=== PATIENT | female | born 1965 | race Caucasian/White ===

== ENCOUNTER 2023-04-23 10:40 | Emergency (ER) | payer OTHER ==
[~2023-04-23] VITALS: Ht 160 cm; Wt 65.8 kg
[2023-04-23 10:44] VITALS: BP 129/83; PULSE 88; RESP 18; TEMP 97.9; O2SAT 97
[2023-04-23 11:29] LABS: BASOPHILS % (AUTO) 0.3 % (0.0-2.0); EOSINOPHILS # (AUTO) 0.1 K/uL (0-0.4); EOSINOPHILS % (AUTO) 0.6 % (0.0-4.0); HEMATOCRIT 37.6 % (36-48); HEMOGLOBIN 12.7 g/dL (12.0-16.0); LYMPHOCYTES # (AUTO) 2.7 K/uL (2.5-16.5); MEAN CORPUSCULAR HEMOGLOBIN 30 pg (27-31); MEAN CORPUSCULAR HGB CONC 34 g/dL (33-37); MEAN CORPUSCULAR VOLUME 87.7 fL (80-94); MONOCYTES # (AUTO) 0.5 K/uL (0.8-1.0); MONOCYTES % (AUTO) 6.2 % (1.7-9.3); NEUTROPHILS # (AUTO) 4.6 K/uL (1.8-7.7); NEUTROPHILS % (AUTO) 58.9 % (42.2-75.2); PLATELET COUNT (AUTO) 219 K/uL (140-450); RED BLOOD CELL COUNT(AUTO) 4.29 MIL/uL (4.20-5.40); RED CELL DISTRIBUTION WIDTH 12.8 % (11.6-13.7); WHITE BLOOD COUNT (AUTO) 7.8 K/uL (4.8-10.8)
[2023-04-23 11:48] VITALS: O2SAT 97
[2023-04-23 12:18] LABS: ALANINE AMINOTRANSFERASE 39 U/L (12-78); ALBUMIN 3.7 g/dL (3.4-5.0); ALCOHOL, BLOOD < 3 mg/dL (<10); ALKALINE PHOSPHATASE 100 U/L (50-136); ANION GAP 13.8 (8-16); ASPARTATE AMINOTRANSFERASE 25 U/L (15-37); CALCIUM 8.5 mg/dL (8.5-10.1); CARBON DIOXIDE 25.8 mmol/L (21-32); CHLORIDE 108 mmol/L (98-107); CREATININE 0.8 mg/dL (0.6-1.3); FREE T4 (FREE THYROXINE) 0.92 ng/dL (0.76-1.46); GFR ARICAN-AMERICAN 96 mL/min (>90); GFR NON ARICAN-AMERICAN 79 mL/min (>90); GLUCOSE 145 mg/dL (74-106); POTASSIUM 3.6 mmol/L (3.5-5.1); SODIUM SERUM 144 mmol/L (136-145); THYROID STIMULATING HORMONE 1.27 uIU/mL (0.34-3.74); TOTAL BILIRUBIN 0.4 mg/dL (0.0-1.0); TOTAL PROTEIN, SERUM 6.6 g/dL (6.4-8.2); UREA NITROGEN, BLOOD 8 mg/dL (7-18)
[2023-04-23 12:47] LABS: ACETAMINOPHEN < 0.5 ug/ml (10-30); SALICYLATE < 2.8 mg/dL (2.8-20.0)
[2023-04-23] MEDS ORDERED: ACETAMINOPHEN 325 MG TAB PO ONE (13:50)
[2023-04-23] MEDS ORDERED: ACET-10509 PO (14:00)
[2023-04-23 15:24] VITALS: BP 129/83; PULSE 88; RESP 18; TEMP 97.9; O2SAT 97
== END 2023-04-23 15:29 | disposition home or self-care (01) ==
LOC: MED 10:40
DX: R51.9 Headache, unspecified (principal); J02.9 Acute pharyngitis, unspecified; I10 Essential (primary) hypertension; E11.9 Type 2 diabetes mellitus without complications; Z79.899 Other long term (current) drug therapy
CPT/HCPCS: 36415; 70450; 80053; 84439; 84443; 84484; 84703; 85025; 99284; G0480; G0482